=== PATIENT | male | born 1965 | race Caucasian/White ===

== ENCOUNTER → 2017-03-05 | Day surgery (SDC) | payer OTHER ==
[~2017-03-05] MED LIST: CRESTOR10 MG PO; FENO200C PO; HYDROmorphone 2 MG/ML VIAL IV PRN; IV RINGERS,LACTATED 1000ML 1,000 ML IV SCH; LEVO112T2 PO; LIDOCAINE 1% 1 ML SYRINGE. ID PRN; LIDOCAINE 2% PF Vial for OR 5 ML VIAL. ONE; METO10TA81 PO; MORPHINE SULFATE 2 MG/ML DISP.SYRIN. IV PRN; OMEP40CA5 PO; ONDANSETRON PF 4 MG/2 ML VIAL. IV PRN; PROCHLORPERAZINE 10 MG/2 ML VIAL. IV PRN; PROP80CA3 PO; PROPOFOL 40 ML IV ONE; SULF500T7 PO; TOPI50TA38 PO; VENL150C PO; fentaNYL PF VIAL 100 MCG/2 ML VIAL IV PRN
[2017-03-05 14:10] VITALS: BP 115/55
--- NOTE | 2017-03-06 04:50 | CONS ---
DATE OF CONSULTATION: 03/05/2017 REFERRING PHYSICIAN: VIOLET Marcelo HISTORY OF PRESENT ILLNESS: A 51-year-old male with past medical history significant for hypothyroidism, hyperlipidemia, gastroesophageal reflux disease is seen with a 2-week history of intermittent rectal bleeding. The patient has had no diarrhea or constipation with the bleeding. It has ____ stopped. There is no family history of colon polyps or colon cancer. He has never undergone colonoscopy except 8 years ago which was normal. He is otherwise without additional complaints. PAST MEDICAL HISTORY: Hypothyroidism, hyperlipidemia, gastroesophageal reflux disease. ALLERGIES: None. MEDICATIONS: Include fenofibrate, Synthroid, Reglan, omeprazole, propranolol, Crestor, sulfasalazine, Topamax and Effexor. SOCIAL HISTORY: He does not drink or smoke. He is an RN. FAMILY HISTORY: Noncontributory. PAST SURGICAL HISTORY: Noncontributory. PHYSICAL EXAMINATION: GENERAL: Reveals a well-nourished, well-developed male. VITAL SIGNS: Temperature is 97, pulse 58, respirations 20. HEENT: Normocephalic and atraumatic head. Pupils and extraocular muscles not tested. Sclerae anicteric. NECK: Supple. LUNGS: Clear. CARDIOVASCULAR: Reveals an S1, S2 without S3, S4 or appreciable murmur. ABDOMEN: Soft abdomen, normal bowel sounds, without appreciable hepatosplenomegaly. EXTREMITIES: Reveals no cyanosis, clubbing or edema. IMPRESSION: Rectal bleeding, etiology is to be determined. Differential does include colon polyps, inflammatory bowel disease, hemorrhoids, colon cancer, AVMs. Therefore, recommend colonoscopy to further assess. Risks and benefits of procedure including risk of hemorrhaging, perforation during the operation have been discussed. The patient is willing to proceed at this time. LILIAN HOLMAN MD DR: YANIV/tayler JOB#: [id number] / [id number]
== END | disposition home or self-care (01) ==
LOC: ENDOS 12:32
PROVIDERS: ATTEND Internal Medicine Gastroenterology
DX: K64.0 First degree hemorrhoids (principal); K57.30 Diverticulosis of large intestine without perforation or abscess without bleeding; E78.00 Pure hypercholesterolemia, unspecified; K21.9 Gastro-esophageal reflux disease without esophagitis; F41.9 Anxiety disorder, unspecified; Z86.69 Personal history of other diseases of the nervous system and sense organs
CPT/HCPCS: 45378; J2001; J2704

== ENCOUNTER → 2021-06-19 | Day surgery (SDC) | payer OTHER ==
[~2021-06-19] VITALS: Ht 172.7 cm; Wt 125.0 kg
[~2021-06-19] MED LIST changes: -HYDROmorphone 2 MG/ML VIAL IV PRN; +HYDROmorphone 2 MG/ML VIAL IVP PRN; -LIDOCAINE 1% 1 ML SYRINGE. ID PRN; +LIDOCAINE 2% PF 5 ML VIAL. ONE; -LIDOCAINE 2% PF Vial for OR 5 ML VIAL. ONE; -MORPHINE SULFATE 2 MG/ML DISP.SYRIN. IV PRN; +MORPHINE SULFATE 2 MG/ML INJ. IVP PRN; -OMEP40CA5 PO; +OMEP40CA7 PO; +ONABOTULINUMTOXINA 100 UNIT VIAL. ID ONE; -ONDANSETRON PF 4 MG/2 ML VIAL. IV PRN; -PROCHLORPERAZINE 10 MG/2 ML VIAL. IV PRN; +PROPOFOL 10 MG/ML (20ML) VIAL. IV ONE; -PROPOFOL 40 ML IV ONE; -fentaNYL PF VIAL 100 MCG/2 ML VIAL IV PRN; +fentaNYL PF VIAL 100 MCG/2 ML VIAL IVP PRN
[2021-06-19 06:41] VITALS: BP 164/82
[2021-06-19 08:18] VITALS: BP 144/77
--- NOTE | 2021-06-19 10:20 | HP ---
DATE OF SERVICE: 06/19/2021 ADMIT DATE: 06/19/2021 UPDATED HISTORY AND PHYSICAL REFERRING PHYSICIAN: Berta Ramsey APRN REASON FOR CONSULTATION: Dysphagia, possible achalasia as well as positive Cologuard. HISTORY OF PRESENT ILLNESS: A 56-year-old male whose past medical history is significant for hypothyroidism as well as hyperlipidemia, history of colonic polyps, is seen for persistent dysphagia. Esophageal motility study and positive SUSANA level are suggestive of a component of achalasia. An EGD with Botox injection, as previous dilatations have been unsuccessful in resolving his symptoms, are recommended and he is willing to proceed. In addition, he has a positive Cologuard with his previous colon polyps, interval exam is recommended. PAST MEDICAL HISTORY: Hypothyroidism, hypertension, hyperlipidemia, urticaria, reflux, migraines. ALLERGIES: None. MEDICATIONS: Include levothyroxine, metoclopramide, omeprazole, propranolol, rosuvastatin, sulfasalazine and venlafaxine. SOCIAL HISTORY: Former drinker, nonsmoker. PAST SURGICAL HISTORY: Significant for eye surgery and appendectomy. REVIEW OF SYSTEMS: Per records. PHYSICAL EXAMINATION: GENERAL: Reveals a well-nourished, well-developed male who is alert, cooperative, no acute distress. VITAL SIGNS: Temperature 97.1, pulse 60, respiratory rate 20. LUNGS: Clear. CARDIOVASCULAR: Reveals an S1, S2, without S3, S4 or appreciable murmur. ABDOMEN: Reveals a soft abdomen, normal bowel sounds, without appreciable hepatosplenomegaly. EXTREMITIES: Reveals no cyanosis, clubbing or edema. IMPRESSION: 1. Dysphagia, positive SUSANA, abnormal manometry. Trial of Botox for possible achalasia is recommended. If this is helpful then further consideration of permanent surgical care will be pursued. 2. History of colonic polyps. Interval colonoscopy is recommended. Risks and benefits were previously discussed. The patient is willing to proceed at this time. TERE/RICARDO DR: Kendall TID: [id number]
== END | disposition home or self-care (01) ==
LOC: ENDOS 06:20
PROVIDERS: ATTEND Internal Medicine Gastroenterology
DX: R13.10 Dysphagia, unspecified (principal); R19.5 Other fecal abnormalities; K64.0 First degree hemorrhoids; K57.30 Diverticulosis of large intestine without perforation or abscess without bleeding; K29.50 Unspecified chronic gastritis without bleeding; K22.89 Other specified disease of esophagus; K22.0 Achalasia of cardia; K63.89 Other specified diseases of intestine; K31.89 Other diseases of stomach and duodenum; K21.9 Gastro-esophageal reflux disease without esophagitis; E03.9 Hypothyroidism, unspecified; E78.00 Pure hypercholesterolemia, unspecified; I10 Essential (primary) hypertension; G43.909 Migraine, unspecified, not intractable, without status migrainosus; Z86.010 Personal history of colon polyps; Z79.899 Other long term (current) drug therapy; Z98.890 Other specified postprocedural states
CPT/HCPCS: 43236; 45378; J0585; J2704